=== PATIENT | female | born 1955 | race African-American/Black ===

== ENCOUNTER 2016-10-15 20:14 | Emergency (ER) | payer SELFPAY ==
[~2016-10-15] VITALS: Ht 162.6 cm; Wt 75.0 kg
[2016-10-15 22:00] VITALS: BP 150/77
== END 2016-10-15 23:25 | disposition home or self-care (01) ==
LOC: ER 23:05
DX: S00.33XA Contusion of nose, initial encounter (principal); W13.8XXA Fall from, out of or through other building or structure, initial encounter; Y93.89 Activity, other specified; Y92.89 Other specified places as the place of occurrence of the external cause; Y99.8 Other external cause status
CPT/HCPCS: 99282